=== PATIENT | female | born 1995 | race Caucasian/White ===

== ENCOUNTER 2020-01-16 13:51 | Outpatient (REF) | payer OTHER, SELFPAY | END 2020-01-16 13:52 | disposition home or self-care (01) | LOC: HO.LAB 13:51 | PROVIDERS: Visit Provider Internal Medicine | DX: Z20.828 Contact with and (suspected) exposure to other viral communicable diseases (principal) | CPT/HCPCS: 87635 ==

== ENCOUNTER → 2020-12-22 14:15 | Outpatient (BNVA) | payer OTHER, SELFPAY | PROVIDERS: Visit Provider Advanced Practice Midwife ==

== ENCOUNTER 2021-01-19 13:53 | Outpatient (REF) | payer OTHER, SELFPAY ==
[2021-01-20 11:11] LABS: BV Int Neg Control Negative (Negative); BV Int Pos Control Positive (Positive)
== END 2021-01-19 13:54 | disposition home or self-care (01) ==
LOC: HO.LAB 13:53
PROVIDERS: PCP Physician Assistant; Visit Provider Advanced Practice Midwife
DX: Z30.432 Encounter for removal of intrauterine contraceptive device (principal); N89.8 Other specified noninflammatory disorders of vagina
CPT/HCPCS: 58301; 87480; 87510; 87660

== ENCOUNTER 2021-09-30 10:11 | Outpatient (REF) | payer OTHER, SELFPAY ==
--- NOTE | ~2021-09-30 | XR_ITS ---
EXAMINATION: XR KNEE, LEFT CLINICAL INFORMATION: Left knee pain COMPARISON: None TECHNIQUE: Four views of the left knee. FINDINGS: There is mild suprapatellar joint effusion with no visible acute fracture or dislocation seen. There is evidence of previous left ACL repair. No fracture or lytic process seen. There are no loose bodies. XR/XR knee LT 4V IMPRESSION: Status post left ACL repair changes. Mild suprapatellar joint effusion. No visible acute fracture, dislocation or subluxation seen.
[2021-09-30 11:32] LABS: Hematocrit 38.1 % (37.0-47.0); Hemoglobin 12.4 g/dl (12.0-16.0); Mean Corpuscular HGB Conc 32.5 g/dl (31.0-35.0); Mean Platelet Volume 9.9 fL (9.4-12.3); Platelet Count 206 X10*3/uL (160-400); Red Blood Count 4.28 X10*6/uL (4.20-5.50); Red Cell Distribution Width 13.1 % (11.0-16.0); White Blood Count 4.5 X10*3/uL (4.8-10.8)
[2021-09-30 12:16] LABS: Alanine Aminotransferase 8 U/L (0-31); Albumin Level 4.2 g/dL (3.5-5.0); Alkaline Phosphatase 50 U/L (39-117); Anion Gap 10 (12-20); Aspartate Amino Transferase 12 U/L (5-31); Bilirubin Total 0.9 mg/dL (0.0-1.0); Blood Urea Nitrogen 13 mg/dL (9-16); Calcium 8.9 mg/dL (8.4-10.2); Carbon Dioxide 29 mmol/L (22-29); Chloride 108 mmol/L (96-108); Estimated Glomerular Filt Rate > 60; Glucose Fasting 54 mg/dL (60-99); Potassium 4.4 mmol/L (3.3-5.1); Sodium 143 mmol/L (135-145); TSH reflex Free T4 1.39 uIU/mL (0.32-4.0); Total Protein 6.4 g/dL (6.5-8.0)
== END 2021-09-30 10:12 | disposition home or self-care (01) ==
LOC: HO.HMGCX 10:11
PROVIDERS: Absent Provider Nurse Practitioner Family; PCP Physician Assistant; Visit Provider Physician Assistant
DX: Z13.29 Encounter for screening for other suspected endocrine disorder (principal); M25.562 Pain in left knee
CPT/HCPCS: 36415; 73564; 80053; 84443; 85027

== ENCOUNTER 2022-09-15 08:30 | Outpatient (REF) | payer OTHER, SELFPAY ==
[2022-09-15 10:55] LABS: Syphilis Screen Nonreactive (Nonreactive)
[2022-09-15 10:56] LABS: HBc Num1 0.03 S/CO (0.00-0.79); HIV AB/AG Nonreactive (Nonreactive); HIV Num 1 0.07 S/CO (0.00-0.99); Hepatitis B Core Antibody Nonreactive (Nonreactive); ~Hepatitis C Antibody Nonreactive (Nonreactive)
[2022-09-15 15:57] LABS: CT PCR NOT DETECTED (Not Detect.); NG PCR NOT DETECTED (Not Detect.)
[2022-09-16 12:54] LABS: BV Int Neg Control Negative (Negative); BV Int Pos Control Positive (Positive)
== END 2022-09-15 08:31 | disposition home or self-care (01) ==
LOC: HO.LAB 08:30
PROVIDERS: PCP Physician Assistant; Visit Provider Advanced Practice Midwife
DX: N76.0 Acute vaginitis (principal); B96.89 Other specified bacterial agents as the cause of diseases classified elsewhere; Z20.2 Contact with and (suspected) exposure to infections with a predominantly sexual mode of transmission
CPT/HCPCS: 0353U; 86704; 86780; 86803; 87389; 87480; 87510; 87660

== ENCOUNTER 2022-09-15 08:48 | Outpatient (REF) | payer OTHER, SELFPAY | END 2022-09-15 08:49 | disposition home or self-care (01) | LOC: HO.LNP 08:48 | PROVIDERS: Visit Provider Advanced Practice Midwife | DX: Z01.419 Encounter for gynecological examination (general) (routine) without abnormal findings (principal) | CPT/HCPCS: 88142 ==

== ENCOUNTER 2022-11-26 09:57 | Outpatient (REF) | payer OTHER, SELFPAY ==
[2022-11-26 15:46] LABS: CT PCR NOT DETECTED (Not Detect.); NG PCR NOT DETECTED (Not Detect.)
[2022-11-26 16:03] LABS: BV Int Neg Control Negative (Negative); BV Int Pos Control Positive (Positive)
== END 2022-11-26 09:58 | disposition home or self-care (01) ==
LOC: HO.LNP 09:57
PROVIDERS: PCP Physician Assistant; Visit Provider Obstetrics & Gynecology
DX: N76.0 Acute vaginitis (principal); Z20.2 Contact with and (suspected) exposure to infections with a predominantly sexual mode of transmission
CPT/HCPCS: 0353U; 87480; 87510; 87660; 99212

== ENCOUNTER 2022-11-26 09:57 | Outpatient (AMB) | payer OTHER, SELFPAY ==
--- NOTE | 2022-11-26 09:59 | MHC.OFFVIS ---
Intake Vital Signs 11/26/22 10:02 Height 5 ft 3 in Weight 160 lb 14.999 oz BMI 28.5 BP 98/62 Intake Visit Reasons: out break Resource Engineer Required: No Information Interpreted: non-clinical & clinical Karate Instructor: Karate Instructor Present (Rochelle Phan CLEMENTE) Accompanied by: Self / Same As Patient Allergies No Known Allergies [No Known Allergies*] Allergy (Verified 11/26/22 10:02) Is last menstrual period known: Yes Last menstrual period: 11/18/22 HPI HPI Comments History of Present Illness Details Presenting complaining of vulvovaginal irritation and itching associated with discharge with no odor. No vulvar lesions PFSH Medical History Borderline personality disorder Surgical History H/O knee surgery Family History Mother History of breast cancer Maternal Uncle Colon cancer Sister Thyroid cancer Social History Housing: Apartment Alcohol intake: current Alcohol intake frequency: a few times a week Patient Tobacco Use Status: Never used Tobacco e-Cigarette/Vaping Use: Currently Using service: No Current occupational status: employed Sexual orientation: Straight/Heterosexual Gender identity: Female Cognitive needs: No Hearing needs: No Vision needs: No Female Reproductive History Menstrual Date of last menstrual period: 11/18/22 Review of Systems Const All systems reviewed & are unremarkable except as noted in HPI and below Physical Exam Vital Signs: Last Vital Signs BP 98/62 11/26/22 10:02 BMI result Body Mass Index 28.5 General: Yes no CVA tenderness External Female Exam: normal external appearance and normal appearance of the urethra Speculum Exam - Vagina: normal appearance of the vagina, normal palpation, no lesions and no masses Speculum Exam - Cervix: normal appearance of the cervix, normal palpation, no lesions, no masses and nontender Bimanual exam- vagina & uterus: normal bimanual exam, normal palpation, uterine size normal, normal palpation, uterine shape normal, No Cervical tenderness present and non-tender Bimanual Exam- Adnexa, other: normal adnexae Back/Spine/Pelvis Back: no CVA tenderness Assessment & Plan Assessment & Plan (1) Vulvovaginitis: Code(s): N76.0 - Acute vaginitis Plan: GC/CT, Bacterial Vaginosis panel taken, Terazol 0.8% q.h.s. for 3 days was sent to the patient's pharmacy. The patient was instructed to call if symptoms don't improve in 48 hours. Orders: Orders CT NG by PCR Today Z20.2 - Contact with and (suspected) exposure to infections with a predominantly sexual mode of transmission Bacterial Vaginosis Panel Today Z20.2 - Contact with and (suspected) exposure to infections with a predominantly sexual mode of transmission Medications: New terconazole 0.8% 1 appful vaginal BEDTIME 20 grams 0RF 3 days Coding Level of Care Code Est Pt Level 3 (19504) Diagnoses Vulvovaginitis N76.0
[2022-11-26 10:02] VITALS: BP 98/62; BMI 28.5
== END 2022-11-26 10:13 | disposition home or self-care (01) ==
PROVIDERS: PCP Physician Assistant; Visit Provider Obstetrics & Gynecology
DX: N76.0 Acute vaginitis (principal)
CPT/HCPCS: 99213

== ENCOUNTER 2023-01-13 08:55 | Outpatient (AMB) | payer OTHER, SELFPAY ==
[2023-01-13 09:05] VITALS: BP 118/66; PULSE 55; O2SAT 98; BMI 29.0
--- NOTE | 2023-01-13 09:05 | A.OFFPC_ITS ---
Vital Signs 01/13/23 09:05 Height 5 ft 3 in Weight 164 lb BMI 29.0 BP 118/66 Blood Pressure Location Lt brachial Position Sitting Pulse 55 Pulse Source Pulse Oximeter Pulse Oximetry (%) 98 Oxygen Delivery Method Room Air Intake Visit Reasons: Annual Exam Allergies adhesive Adverse Reaction (Intermediate, Verified 01/13/23 09:23) dermatitis Medication List - Last Reconciled 01/13/23 by Rick Emerson PA-C sertraline 100 mg PO DAILY 90 days Tobacco use date assessed: 07/16/22 Dental Screening Dental Screen Date: 01/13/23 Did you have a dental visit in the last 12 months?: No Did you have a dental problem in the last 6 months where you did not have access to dental care?: No Was dental information given to patient?: Patient has dentist HPI Annual Exam HPI Details Patient is a 27-year-old female here today for a routine annual physical. Patient has a past medical history significant for major depressive disorder. Concern--> has developed a rash in the area she placed a patch for her control. Been managing with dry gauze. Also noted a hypoglycemia on last year's labs. She does report being somewhat symptomatic at times when she does not eat. MDD: Patient reports her depression is well controlled on current doses Zoloft. .. COST CONSULTANT: DOes follow A COST CONSULTANT - she would like a new control and is interested in an another IUD placement. 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 1. Little interest or pleasure in doing things: several days 2. Feeling down, depressed, or hopeless: several days 3. Trouble falling or staying asleep, or sleeping too much: several days 4. Feeling tired or having little energy: several days 5. Poor appetite or overeating: several days 6. Feeling bad about yourself - or that you are a failure or have let yourself or your family down: several days 7. Trouble concentrating on things, such as reading the newspaper or watching television: several days 8. Moving or speaking so slowly that other people could have noticed. Or the opposite - being so fidgety or restless that you have been moving around a lot more than usual: several days 9. Thoughts that you would be better off or of hurting yourself in some way: several days Total score: 9 Depression Screening Interpretation: Positive Depression Screening Follow-up: Existing condition and In treatment Depression Screening Done: Yes 35144 - PHQ-9 Billing: Yes Source: Developed by Drs. Jose Singh, Amaya Acosta, Reji Person and colleagues, with an educational bridget from [employer]. Thrive Questionnaire Date Thrive assessed: 07/16/22 AUDIT C Alcohol Use Questionnaire (AUDIT-C) 1. How often do you have a drink containing alcohol?: 2-4 times a month 2. How many drinks containing alcohol do you have on a typical day when you are drinking?: 1 or 2 Total Score: 2 Score Reviewed/Action Taken: Yes ELEONORA-7 AMB Questionnaire ELEONORA-7 Date ELEONORA - 7 assessed: 07/16/22 Source: Developed by Drs. Jose Singh, Amaya Acosta, Reji Person and colleagues, with an educational bridget from [employer]. Review of Systems Const Denies body aches, Denies chills, Denies excessive sweating, Denies fatigue, Denies fever(s) and Denies headache(s) Eyes Denies blurry vision ENT Denies dysphagia, Denies vertigo, Denies dizziness, Denies headache(s), Denies hearing loss and Denies tinnitus Card Denies chest pain, Denies chest pain with activity, Denies syncope, Denies i rregular heart rhythm and Denies dyspnea Resp Denies chest congestion, Denies cough, Denies hemoptysis, Denies dyspnea and Denies wheezing GI Denies abdominal pain, Denies melena, Denies hematochezia, Denies coffee ground emesis, Denies dysphagia, Denies diarrhea, Denies nausea and Denies vomiting Denies urinary frequency, Denies dysuria, Denies urinary hesitancy and Denies urinary urgency Musc Denies arthralgias, Denies limited range of motion, Denies muscle cramps and Denies muscle weakness Skin/Breast Denies rash and Denies skin ulcer Neuro Denies Abnormal speech present, Denies confusion, Denies vertigo, Denies dizziness, Denies syncope, Denies headache(s), Denies memory loss and Denies seizure-like activity Psych Denies anxiety, Denies confusion, Denies depression, Denies memory loss, Denies panic attacks and Denies paranoia Endo Denies excessive sweating, Denies fatigue, Denies flushing, Denies polydipsia and Denies polyuria Aller/Immun Denies wheezing Physical exam (Primary Care) Vital Signs: Last Vital Signs Pulse 55 01/13/23 09:05 BP 118/66 01/13/23 09:05 Pulse Ox 98 01/13/23 09:05 Oxygen Delivery Method Room Air 01/13/23 09:05 BMI result Body Mass Index 29.0 Tobacco/Smoking Status: Tobacco use Status Tobacco use date assessed 07/16/22 01/13/23 09:10 Patient Tobacco Use Status Never used Tobacco 01/13/23 09:10 e-Cigarette/Vaping Use Currently Using 01/13/23 09:10 PHQ-9: PHQ-9 Score PHQ-9: Total score 9 01/13/23 09:16 Depression Screening Interpretation: Positive Depression Screening Follow-up: Existing condition and In treatment Thrive Assessment: Date of Thrive Assessment Date Thrive assessed 07/16/22 01/13/23 09:10 Const General: cooperative, comfortable, no acute distress, alert and awake; No confusion Orientation/consciousness: oriented to person, oriented to place, patient oriented x3 and No confusion HENMT Head: Yes normocephalic Ears: external ears normal and TM's normal bilaterally Face and sinus: No sinus tenderness Mouth: Normal oral and palatal mucosa present and tongue normal Teeth and gingiva: dentition normal and gingiva normal Throat: Yes posterior oropharynx normal, Yes tonsils normal and Yes uvula midline Eyes Conjunctivae: conjunctivae normal Sclerae: sclerae normal Pupils: Equal, round and reactive pupils present EOM: EOMs intact bilaterally Direct Ophthalmoscopy: No no photophobia Neck Neck: Yes no lymphadenopathy, No tender and Yes no JVD Thyroid: Thyroid normal Carotids: no bruits Chest Chest palpation & inspection: no tenderness Resp Effort & Inspection: normal respiratory effort, no audible wheezes, not labored and no stridor Auscultation: no crackles, no rales, no rhonchi and no wheezes Cardio Jugular venous distension: no JVD Rate: regular rate, not bradycardic and not tachycardic Rhythm: regular rhythm Bruits: no carotid bruits Peripheral pulses: Peripheral pulses 2+ throughout GI Inspection: Yes normal to inspection, No abdominal wall ecchymosis and No visible herniation Palpation (GI): Soft to palpation, nontender, no guarding, not rigid and No hepatosplenomegaly present Auscultation: normoactive bowel sounds General: Yes no CVA tenderness Back/Spine/Pelvis Back: no CVA tenderness and No back tenderness Cervical Spine: cervical ROM normal Thoracic/Lumbar Spine: thoracic and lumbar spine normal to inspection, straight leg raise negative bilaterally, No thoraco-lumbar ROM limited and No lumbar spinal tenderness Skin Lesions: no lesions Rashes: no rashes Wounds: no wounds Neuro General: oriented to person, oriented to place, patient oriented x3, CN's II-XI intact bilaterally and No confusion Cranial nerves: Yes Equal, round and reactive pupils present and Yes Normal accommodation reflex present Cognition (Neuro): normal cognition Speech: No Abnormal speech present Gait exam (Neuro): Normal gait present Motor exam (neuro): 5/5 motor strength present throughout Extrem Right upper extremity: full ROM; no cyanosis Left upper extremity: full ROM; no cyanosis Right lower extremity: no edema Left lower extremity: no edema Psych Appearance: grossly normal Mental Status: mental status grossly normal Affect: normal affect Attitude: cooperative Thought process: Normal thought process present Office Procedures Flu Questionnaire Does the patient have a severe egg allergy?: No Does the patient have severe life threatening allergies?: No Does the patient have a fever or illness today?: No Has the patient ever had Guillain-[place] Syndrome?: No Has the patient ever had any past reaction to a flu shot?: No Immunizations flu vacc [id number] 6mos up(PF) 60 mcg(15 mcgx4)/0.5 mL IM syringe Performing Provider: Rick Emerson PA-C [facility] Administered by: CLEMENTE Degroot on 01/13/23 09:16 Dose Route Admin Location Dispensed Lot Number Expiration Date NDC Sales Appointment Coordinator 0.5 mL IM Right Deltoid 0.5 mL [id number] 01/13/23 85694-095-83 [employer] VIS Given Date VIS Provided VIS Publication Date 01/13/23 Single Vaccine 20 Eligibility Eligibility Date Funding Source Not [place] Eligible 01/13/23 Private Assessment and Plan Assessment & Plan (1) Annual physical exam: Code(s): Z00.00 - Encounter for general adult medical examination without abnormal findi ngs (2) MDD (major depressive disorder), recurrent episode, moderate: Code(s): F33.1 - Major depressive disorder, recurrent, moderate Plan: Patient's PHQ-9 score positive for mild to moderate depression which has been an existing condition for her. Patient reports her depression is well controlled with current dose of sertraline at 100 mg. She is not talking to mental therapist or psychiatrist at this time. Will continue her current dose of Zoloft. Otherwise denies any SI or HI. (3) Screening for diabetes mellitus (DM): Code(s): Z13.1 - Encounter for screening for diabetes mellitus (4) Dermatitis: Code(s): L30.9 - Dermatitis, unspecified Plan: Has acute contact dermatitis to control patch. Will supply patient with triamcinolone cream for the inflammation and skin irritation. (5) Hypoglycemia: Code(s): E16.2 - Hypoglycemia, unspecified Plan: Noted hypoglycemia on fasting labs. She does report some symptomatic hypoglycemia if he does not eat. Advised to eat regular meals and have snacks in between (6) Family history of thyroid cancer: Code(s): Z80.8 - Family history of malignant neoplasm of other organs or systems Plan: Reports her sister has thyroid cancer. Will check her TSH. Orders: Orders Comprehensive [place]. Panel Fast Today Z13.1 - Encounter for screening for diabetes mellitus TSH reflex Free T4 Today Z80.8 - Family history of malignant neoplasm of other organs or systems Influenza [id number] Immunization Today Z23 - Encounter for immunization Medications: New triamcinolone acetonide 0.5% 1 appl topical DAILY 15 grams 0RF 15 days L30.9 - Dermatitis, unspecified Coding Level of Care Code Est Pt Prev Care 18-39y(77599) Diagnoses Annual physical exam Z00.00 MDD (major depressive disorder), recurrent episode, moderate F33.1 Screening for diabetes mellitus (DM) Z13.1 Dermatitis L30.9 Hypoglycemia E16.2 Family history of thyroid cancer Z80.8
== END 2023-01-13 09:38 | disposition home or self-care (01) ==
PROVIDERS: Visit Provider Physician Assistant
DX: Z00.00 Encounter for general adult medical examination without abnormal findings (principal); F33.1 Major depressive disorder, recurrent, moderate; Z13.1 Encounter for screening for diabetes mellitus; L30.9 Dermatitis, unspecified; E16.2 Hypoglycemia, unspecified; Z80.8 Family history of malignant neoplasm of other organs or systems; Z23 Encounter for immunization
CPT/HCPCS: 90471; 90686; 99395

== ENCOUNTER 2023-03-01 10:00 | Outpatient (REF) | payer OTHER, SELFPAY ==
[2023-03-02 05:38] LABS: CT PCR NOT DETECTED (Not Detect.); NG PCR NOT DETECTED (Not Detect.)
[2023-03-02 12:22] LABS: BV Int Neg Control Negative (Negative); BV Int Pos Control Positive (Positive)
== END 2023-03-01 10:01 | disposition home or self-care (01) ==
LOC: HO.LAB 10:00
PROVIDERS: PCP Physician Assistant; Visit Provider Advanced Practice Midwife
DX: Z01.419 Encounter for gynecological examination (general) (routine) without abnormal findings (principal); Z20.2 Contact with and (suspected) exposure to infections with a predominantly sexual mode of transmission; Z11.3 Encounter for screening for infections with a predominantly sexual mode of transmission; Z11.59 Encounter for screening for other viral diseases
CPT/HCPCS: 0353U; 81025; 87480; 87510; 87660; 99212

== ENCOUNTER 2023-03-01 10:00 | Outpatient (AMB) | payer OTHER, SELFPAY ==
--- NOTE | 2023-03-01 10:26 | A.OFFVIS_ITS ---
Intake Vital Signs 03/01/23 10:29 Height 5 ft 3 in Weight 164 lb BMI 29.0 BP 122/70 Intake Visit Reasons: STD Testing Scaffold Worker Required: No Information Interpreted: clinical only Senior Dot Net Developer: Senior Dot Net Developer Present Allergies adhesive Adverse Reaction (Intermediate, Verified 03/01/23 10:26) dermatitis Is last menstrual period known: Yes (02/12/23) Do you need a note to return to daycare/school/sports/work: No HPI STD Testing HPI Details Patient is here to get STD tested after being with someone new. Her last menstrual period was February 12 she wanted a test just to be sure it is negative. She is currently not using anything for control but she is not sexually active at the moment either she had used a control patch but had a terrible allergic reaction after 2 days to the patch on her skin on her upper arm. She still has a patch at home in her medicine cabinet and I recommend she take a photo of the ingredients so that she is sure to avoid any of the ingredients in Band-Aids in the future. She never had a reaction to Band-Aids or control patches in the past before so it may be specific to the particular generic brand that was used. She has used the ParaGard IUD before for about 5 years after of her child she had no problems with it she thought that it was responsible for recurrences of BV and low and behold it turns out that it is when she is sexually active that the BV recurs. She tends to use condoms also but not always which is why she wants to get checked for STDs. She also would like a ParaGard for future use and protection from . She said her periods did not get worse with the ParaGard the last time . She would like blood work for STIs as well. 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 Vagina pink moist cervix pink moist healthy appearing extremely posterior. Normal healthy appearing mucus consistent with midcycle or just before, uterus is small mobile firm anteverted nontender good tone with Kegel. External Female Exam: normal external appearance Speculum Exam - Vagina: normal appearance of the vagina and normal vaginal discharge Speculum Exam - Cervix: normal appearance of the cervix Bimanual exam- vagina & uterus: normal bimanual exam, uterine size normal, consistency normal, uterine mobility normal, uterine shape normal and non-tender Bimanual Exam- Adnexa, other: normal adnexae, no masses and No adnexal tenderness Results AMB Test Urine AMB Test Urine Negative Last Edit by Asad Weber CMA on 03/01/23 10:41 Assessment & Plan Assessment & Plan (1) Encounter for screening examination for sexually transmitted disease: Code(s): Z11.3 - Encounter for screening for infections with a predominantly sexual mode of transmission Plan Testing done for gonorrhea chlamydia trichomoniasis as well as Gardnerella and Elena discussion about BV done in ger terms patient has observed that it is sexual activity that is the most common denominator in terms of recurrence of BV she is able to manage it with condoms for the most part and if she ever does feel she has symptom she uses boric acid for 3 days and is set. She also would like blood work for STIs and I also offered her a full panel for testing for hepatitis-B and C so that she can see if she is still protected by antibodies for hepatitis-B. She signed a form for the ParaGard IUD and I recommend she call if she does not hear anything within the month and that we would want to inserted on day 1 or 2 of her next period and once it is in she would call when she has her. Starting and we would try to get her in that day. She will use condoms if any activity before then. Orders: Orders Hepatitis B Surface Antigen Today Z11.3 - Encounter for screening for infections with a predominantly sexual mode of transmission HIV Ab/Ag Today Z11.3 - Encounter for screening for infections with a predominantly sexual mode of transmission Hepatitis B,C Profile Today Z11.3 - Encounter for screening for infections with a predominantly sexual mode of transmission AMB HCG Urine Test Today Z00.00 - Encounter for general adult medical examination without abnormal findings Hepatitis C Antibody Today Z11.3 - Encounter for screening for infections with a predominantly sexual mode of transmission Syphilis Screen Today Z11.3 - Encounter for screening for infections with a predominantly sexual mode of transmission Coding Level of Care Code Est Pt Level 3 (91654) Diagnoses Encounter for screening examination for sexually transmitted disease Z11.3
[2023-03-01 10:29] VITALS: BP 122/70; BMI 29.0
== END 2023-03-01 11:04 | disposition home or self-care (01) ==
LOC: HO.HWSM 10:00
PROVIDERS: PCP Physician Assistant; Visit Provider Advanced Practice Midwife
DX: Z11.3 Encounter for screening for infections with a predominantly sexual mode of transmission (principal); Z00.00 Encounter for general adult medical examination without abnormal findings
CPT/HCPCS: 99213

== ENCOUNTER 2023-03-08 10:31 | Outpatient (REF) | payer OTHER, SELFPAY ==
[2023-03-09 04:33] LABS: Syphilis Screen Nonreactive (Nonreactive)
[2023-03-09 05:08] LABS: HBS Num1 11.76 mIU/mL (0-7.99); HBc Num1 0.03 S/CO (0.00-0.79); HBsAGNum1 0.38 S/CO (0.00-0.99); HIV AB/AG Nonreactive (Nonreactive); HIV Num 1 0.05 S/CO (0.00-0.99); Hepatitis B Core Antibody Nonreactive (Nonreactive); Hepatitis B Surface Antigen Negative (Negative); ~Hepatitis C Antibody Nonreactive (Nonreactive)
[2023-03-09 06:05] LABS: HBS Num2 12.06 mIU/mL (0-7.99); ~Hepatitis B Surface Antibody GRAYZONE (Nonreactive)
== END 2023-03-08 10:32 | disposition home or self-care (01) ==
LOC: HO.LAB 10:31
PROVIDERS: PCP Physician Assistant; Visit Provider Advanced Practice Midwife
DX: Z11.3 Encounter for screening for infections with a predominantly sexual mode of transmission (principal)
CPT/HCPCS: 36415; 86704; 86706; 86780; 86803; 87340; 87389

== ENCOUNTER 2023-03-16 10:02 | Outpatient (AMB) | payer OTHER, SELFPAY ==
--- NOTE | 2023-03-16 10:19 | AM.OFFVISNUR ---
Intake Intake Visit Reasons: Hep vaccine Allergies adhesive Adverse Reaction (Intermediate, Verified 03/01/23 10:26) dermatitis Immunizations Engerix-B (PF) 20 mcg/mL intramuscular suspension Performing Provider: Rick Emerson PA-C [facility] Administered by: Lilli Rushing RN on 03/16/23 10:19 Dose Route Admin Location Dispensed Lot Number Expiration Date [facility] Hiv Prevention Specialist 1 mL IM Left Deltoid 1 mL [id number] 08/21/23 07544-972-60 [employer] VIS Given Date VIS Provided VIS Publication Date 03/16/23 Single Vaccine 22 Eligibility Eligibility Date Funding Source Not [facility] Eligible 03/16/23 Private Coding Assessment & Plan Assessment & Plan Orders: Orders Hepatitis B Adult Immunization Today Z23 - Encounter for immunization
== END 2023-03-16 10:20 | disposition home or self-care (01) ==
PROVIDERS: PCP Physician Assistant; Visit Provider Physician Assistant
DX: Z23 Encounter for immunization (principal)
CPT/HCPCS: 90471; 90746

== ENCOUNTER 2023-04-18 08:38 | Outpatient (AMB) | payer OTHER, SELFPAY ==
--- NOTE | 2023-04-18 08:46 | AM.OFFVISNUR ---
Intake Intake Visit Reasons: hep B second dose Intake Note: Next vaccine should be 6 month from her first shot. This vaccine today was her second dose. Allergies adhesive Adverse Reaction (Intermediate, Verified 03/01/23 10:26) dermatitis Immunizations Engerix-B (PF) 20 mcg/mL intramuscular syringe Performing Provider: Rick Emerson PA-C [facility] Administered by: Flaca Holbrook CMA on 04/18/23 08:49 Dose Route Admin Location Dispensed Lot Number Expiration Date [facility] Plant Sprayer 1 mL IM Left Deltoid 1 mL [id number] 08/06/24 07992-125-95 [employer] VIS Given Date VIS Provided VIS Publication Date 04/18/23 Single Vaccine 22 Eligibility Eligibility Date Funding Source Not [facility] Eligible 04/18/23 Private Coding Assessment & Plan Assessment & Plan Orders: Orders Hepatitis B Adult Immunization Today Z23 - Encounter for immunization
== END 2023-04-18 09:09 | disposition home or self-care (01) ==
PROVIDERS: PCP Physician Assistant; Visit Provider Physician Assistant
DX: Z23 Encounter for immunization (principal)
CPT/HCPCS: 90471; 90746

== ENCOUNTER 2023-07-19 07:59 | Emergency (ER) | payer OTHER, SELFPAY ==
--- NOTE | ~2023-07-19 | XR_ITS ---
EXAMINATION: XR KNEE, RIGHT CLINICAL INFORMATION: Pain COMPARISON: None available. TECHNIQUE: Four views of the right knee. FINDINGS: Postsurgical changes noted. No fracture or destructive lesion or alignment abnormality or joint effusion. XR/XR knee LT 2V IMPRESSION: No acute findings.
[2023-07-19 08:35] VITALS: BP 104/54; PULSE 64; RESP 18; TEMP 36.6; O2SAT 98; BMI 28.3
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
[2023-07-19] MEDS: Acetaminophen 325 MG TABLET 975 MG PO (10:55)
[2023-07-19] MEDS: Ketorolac Tromethamine 30 MG/ML VIAL IM (10:55)
[2023-07-19 11:04] VITALS: BP 104/54; PULSE 64; RESP 18; TEMP 36.6; O2SAT 98
== END 2023-07-19 11:05 | disposition home or self-care (01) ==
PROVIDERS: Emergency Provider Emergency Medicine; PCP Physician Assistant
DX: M25.562 Pain in left knee (principal)
CPT/HCPCS: 73560; 96372; 99284; J1885

== ENCOUNTER 2023-08-01 07:51 | Outpatient (REF) | payer OTHER, SELFPAY | END 2023-08-01 07:52 | disposition home or self-care (01) | LOC: HO.HOSX 07:51 | PROVIDERS: Visit Provider Orthopaedic Surgery | DX: S89.92XA Unspecified injury of left lower leg, initial encounter (principal) | CPT/HCPCS: 99202 ==

== ENCOUNTER 2023-08-01 09:16 | Outpatient (AMB) | payer OTHER, SELFPAY ==
[2023-08-01 09:24] VITALS: BMI 28.3
--- NOTE | 2023-08-01 09:24 | A.OFFVIS_ITS ---
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 The patient states that she underwent two anterior cruciate ligament replacement surgeries after suffering soccer injuries while in high school. The patient states that she re- injured her left knee approximately 1 year ago. She twisted her knee and had acute onset of pain. Since that time her symptoms have gotten progressively worse. She has done physical therapy exercises which aggravated her pain. She has also tried Tylenol and anti-inflammatory medicines which gave her minimal relief. The patient states that her left knee will give out several times per day. Allergies adhesive Adverse Reaction (Intermediate, Verified 08/01/23 09:38) dermatitis Medication List - Last Reconciled 08/01/23 by Evan Morales MD acetaminophen (Tylenol) 325 mg PO Q4H PRN sertraline 100 mg PO DAILY 90 days PFSH Medical History Borderline personality disorder Surgical History H/O knee surgery Family History Mother History of breast cancer Maternal Uncle Colon cancer Sister Thyroid cancer Social History (Updated 08/01/23 @ 09:39 by Emilee Horner CMA) Housing: Apartment Alcohol intake: former Patient Tobacco Use Status: Never used Tobacco e-Cigarette/Vaping Use: Currently Using service: No 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 Sexual orientation: Straight/Heterosexual Gender identity: Female Cognitive needs: No Hearing needs: No Vision needs: No Female Reproductive History Menstrual Age of Menarche: 16 Physical Exam Vital Signs: BMI result Body Mass Index 28.3 Const Other: Well-nourished well-developed very friendly female awake alert and oriented x3 in no acute distress Extrem Other: Bilateral lower extremity examination shows good capillary refill, no skin lesions noted, normal sensation light touch Left knee examination shows that the surgical incisions are well healed, no erythema, minimal crepitus with range of motion, positive Sahra's test, tenderness along her medial joint line, positive Yocasta's test Results Reviewed Results Reviewed: X-rays of the patient's left knee show mild joint space narrowing, bony changes consistent with previous anterior cruciate ligament reconstructive surgery Assessment & Plan Assessment & Plan (1) Injury of left anterior cruciate ligament: Code(s): S89.92XA - Unspecified injury of left lower leg, initial encounter Category: Medical Plan Ms. Tim presents with recurrent left knee pain and mechanical symptoms most likely due to a recurrent anterior cruciate ligament tear. Thus, I will send the patient for an MRI of her left knee for further evaluation. I will contact her by phone once the MRI results are available. Feel free to call me at any time should questions regarding her orthopedic management arise. Thank you very much for asking me to see this very friendly patient. I spent 21 minutes in reviewing the patient's records and imaging studies, seeing the patient and documenting in the medical record. Orders: Orders XR knee LT 3V Today M25.562 - Pain in left knee MR knee LT wo con Today S89.92XA - Unspecified injury of left lower leg, initial encounter Coding Level of Care Code New Pt Level 2 (19734) Diagnoses Injury of left anterior cruciate ligament S89.92XA
== END 2023-08-01 09:49 | disposition home or self-care (01) ==
PROVIDERS: PCP Physician Assistant; Visit Provider Orthopaedic Surgery
DX: S89.92XA Unspecified injury of left lower leg, initial encounter (principal)
CPT/HCPCS: 99203

== ENCOUNTER 2023-08-11 13:17 | Outpatient (REF) | payer OTHER, SELFPAY ==
[2023-08-12 07:18] LABS: CT PCR NOT DETECTED (Not Detect.); NG PCR NOT DETECTED (Not Detect.)
[2023-08-12 11:13] LABS: Bacterial Vaginosis PCR POSITIVE (Negative); Candida Group PCR NOT DETECTED (Not Detect); Candida glab krusei PCR NOT DETECTED (Not Detect); Trichomonas vaginalis PCR NOT DETECTED (Not Detect)
== END 2023-08-11 13:18 | disposition home or self-care (01) ==
LOC: HO.LAB 13:17
PROVIDERS: PCP Physician Assistant; Visit Provider Advanced Practice Midwife
DX: Z01.419 Encounter for gynecological examination (general) (routine) without abnormal findings (principal); Z30.430 Encounter for insertion of intrauterine contraceptive device; Z20.2 Contact with and (suspected) exposure to infections with a predominantly sexual mode of transmission
CPT/HCPCS: 0352U; 0353U; 58300; 81025; J7300

== ENCOUNTER 2023-08-11 13:17 | Outpatient (AMB) | payer OTHER, SELFPAY ==
[2023-08-11 13:20] VITALS: BP 112/60; BMI 29.0
--- NOTE | 2023-08-11 13:20 | A.OFFVIS_ITS ---
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 She does not want anything with hormones in it she does g et a recurrent BV but she manages it mostly with the occasional boric acid capsule and that takes care of things and for her symptoms of BV are often before her. More of a fishy odor and I kind of a creamy discharge she does acknowledge that those are her symptoms. She is open to STI repeat testing today as her last exam was in February. Her periods started yesterday her period Tends to be sort of heavy and clotty. 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 Sexual orientation: Straight/Heterosexual Gender identity: Female Cognitive needs: No Hearing needs: No Vision needs: No Female Reproductive History Menstrual Age of Menarche: 16 Duration of menses: <3 days Date of last menstrual period: 08/10/23 control method: none Total pregnancies: 1 Full term: 1 Date of last pap smear: 09/16/22 (negative) Physical Exam Vital Signs: Last Vital Signs BP 112/60 08/11/23 13:20 BMI result Body Mass Index 29.0 Other: Patient has moderate to heavy menses her cervix is multiparous long close thick mobile posterior pointing uterus is markedly anteverted mobile nontender on the larger side of normal, mobile nontender adnexa nontender good muscle tone. External Female Exam: normal external appearance Speculum Exam - Vagina: normal appearance of the vagina and normal vaginal discharge Speculum Exam - Cervix: normal appearance of the cervix Bimanual exam- vagina & uterus: normal bimanual exam, uterine size normal, consistency normal, uterine mobility normal, uterine shape normal and non-tender Bimanual Exam- Adnexa, other: normal adnexae, no masses and No adnexal tenderness Office Procedures IUD Insert/Removal Details Details: ---Patient is here for her IUD insertion. Bimanual exam was done. Her uterus is firm, nontender, and appropriate sized, and is anteverted with the cervix pointing directly posterior Testing obtained for gonorrhea chlamydia trichomoniasis Gardnerella and Elena as last testing was 6 months ago. . The cervix was swabbed with Betadine. Tenaculum was placed on the cervix slowly to minimize cramping. The uterus was sounded slowly and gently. There was some resistance at the internal os so a dilator was used and gently probed and was able to navigate the axis of the os smoothly. Her uterus was sounded and it showed a measurement of 9 cm. The IUD was removed from its package, after checking identifying information and lot dates and expiration dates and and gently inserted into the os, as per the IUD insertion procedure. Insertion of the IUD went very smoothly. The strings were then trimmed to 3 centimetres. The tenaculum was removed and gentle pressure applied with a swab, until any bleeding subsided from the tenaculum sites. The speculum was gently removed. The patient sat up. I Reviewed what to expect, and what indications would necessitate a call. Because of the need for the dilator and just to ensure correct placement and because of the borderline large measurement I am ordering a pelvic ultrasound to ascertain that the IUD is in the correct spot. I am ordering it stat so will be done either today or tomorrow. Pt to call for fever, untoward pain or cramping. I reviewed any appropriate backup method. Pt to return for recheck as scheduled. 27296-OOS Insertion Procedure code (CPT) selection complete Office Meds [employer] T 380A 380 square mm intrauterine device Performing Provider: Karol Meléndez CNM Performing Location[facility] [place] [facility] Administered by: Asad Weber CMA on 08/11/23 14:02 Dose Route Admin Location Dispensed Lot Number Expiration Date [facility] Engineer First Assistant 1 device intrauterine 1 ea [id number] 10/17/28 Results AMB Test Urine AMB Test Urine Negative Last Edit by Asad Weber CMA on 08/11/23 13:31 Results Reviewed Results Reviewed: Laboratory Last Values Tst Clinic Negative 08/11/23 13:30 Specimen Inquiry Name: BryanSteve pritchardjose Ortiz Age/Sex: 27/F : 1995 Unit#: [id number] Attend Dr: Karol Meléndez CNM Re03/01/23 Status: DEP [facility]: SPEC : [id number] YUDI: 03/01/23 STATUS: COMP REQ : [id number] RECD: 03/01/[address]: Karol Meléndez CNM COMP: 03/02/23 ENTERED: 03/01/[address]: Rick Emerson PA-C ORDERED: BV Panel Test Result Flag Reference Trichomonas DNA Negative Negative Gardnerella DNA Positive A Negative Elena DNA Negative Negative robin: Maeve Tim Age/Sex: 26/F Attending: Shanna Figueroa CNM : 1995 Submitted by: Shanna Figueroa CNM Copies to: MR #: [id number] Status: DEP REF Collected: 09/15/22 Location: [facility] Received: 09/16/22 Interpretation Satisfactory for evaluation. Negative for intraepithelial lesion or malignancy. Clinical Information LMP: 08/25/22 Previous PAP test: 2017, WNL Material Received ThinPrep-Cervical Electronically Signed By: Gaby Solano 10/02/22 1525 The Pap Test is a screening procedure with the inherent possibility of both false negative and false positive results. Results should be interpreted in the context of historic and current clinical findings. Reliability of the Pap Test is enhanced by performing the test on a regular repetitive basis. Patient: Maeve Tim Age/Sex: 26/F MR#: [id number] Page 1 of 1 Assessment & Plan Assessment & Plan (1) Encounter for screening examination for sexually transmitted disease: Code(s): Z11.3 - Encounter for screening for infections with a predominantly sexual mode of transmission Category: Medical (2) Encounter for IUD insertion: Code(s): Z30.430 - Encounter for insertion of intrauterine contraceptive device Category: Medical Plan Because it the need for the dilator and the borderline upper limit measurement the uterus 9 cm, I am ordering an ultrasound to be done on an urgent basis in basis so that I can ascertain that the IUD is in the correct spot. I reviewed that if it were not she would need to return in need to remove it. Once the internal os was passed there was no resistance at all. I asked the patient not to have sex until correct placement is verified and we will have a visit to see how she is doing in 6 weeks. Reviewed the side effects associated with the ParaGard she noticed no change with her periods when she had it before and she likes the new hormone aspect of it. Orders: Orders AMB HCG Urine Test Today Z32.02 - Encounter for test, result negative AMB IUD Insertion/Removal - Patient Supply Today Z30.430 - Encounter for insertion of intrauterine contraceptive device US pelvic and transvaginal Today Z11.3 - Encounter for screening for infections with a predominantly sexual mode of transmission, Z30.430 - Encounter for insertion of intrauterine contraceptive device Coding Level of Care Code Est Pt Level 3 (24851) Diagnoses Encounter for screening examination for sexually transmitted disease Z11.3 Encounter for IUD insertion Z30.430 CPT Codes Details - CPT: 47561-WOG Insertion ([id number])
== END 2023-08-11 14:07 | disposition home or self-care (01) ==
LOC: HO.HWSM 13:17
PROVIDERS: PCP Physician Assistant; Visit Provider Advanced Practice Midwife
DX: Z30.430 Encounter for insertion of intrauterine contraceptive device (principal); Z32.02 Encounter for pregnancy test, result negative
CPT/HCPCS: 58300

== ENCOUNTER 2023-08-11 15:12 | Outpatient (REF) | payer OTHER, SELFPAY ==
--- NOTE | ~2023-08-11 | US_ITS ---
EXAMINATION: US PELVIS CLINICAL INFORMATION: Evaluate IUD COMPARISON: None available. TECHNIQUE: Transabdominal transvaginal study. The uterus is measuring 9 x 4 x 5 cm. Anteverted. Anteflexed. Exam does demonstrate an IUD device associated with the canal. The right ovary is 2.4 x 2.8 x 2.5 cm. Volume 9 mL Left ovary is 2.8 x 1.5 x 1.7 cm. Volume 4 mL. US/US pelvic and transvaginal IMPRESSION: Findings consistent with IUD within the uterus.
== END 2023-08-11 15:13 | disposition home or self-care (01) ==
LOC: HO.US 15:12
PROVIDERS: PCP Physician Assistant; Visit Provider Advanced Practice Midwife
DX: Z30.430 Encounter for insertion of intrauterine contraceptive device (principal)
CPT/HCPCS: 76830; 76856

== ENCOUNTER 2023-09-01 13:33 | Outpatient (AMB) | payer OTHER, SELFPAY ==
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
== END 2023-09-01 16:15 | disposition home or self-care (01) ==
PROVIDERS: PCP Physician Assistant; Visit Provider Orthopaedic Surgery
DX: S83.212A Bucket-handle tear of medial meniscus, current injury, left knee, initial encounter (principal); S83.512A Sprain of anterior cruciate ligament of left knee, initial encounter; S89.92XA Unspecified injury of left lower leg, initial encounter
CPT/HCPCS: 99214

== ENCOUNTER → 2023-09-01 13:33 | Outpatient (BNVA) | payer OTHER, SELFPAY | PROVIDERS: PCP Physician Assistant; Visit Provider Orthopaedic Surgery | DX: S83.242A Other tear of medial meniscus, current injury, left knee, initial encounter (principal); S89.92XA Unspecified injury of left lower leg, initial encounter; X50.1XXA Overexertion from prolonged static or awkward postures, initial encounter; Y93.55 Activity, bike riding; Y92.410 Unspecified street and highway as the place of occurrence of the external cause | CPT/HCPCS: 99212 ==

== ENCOUNTER 2023-09-09 08:58 | Outpatient (AMB) | payer OTHER, SELFPAY ==
--- NOTE | 2023-09-09 09:29 | AM.OFFVISNUR ---
Intake Intake Visit Reasons: 3rd hep vaccine Allergies adhesive Adverse Reaction (Intermediate, Verified 08/11/23 13:22) dermatitis Immunizations Recombivax HB (PF) 10 mcg/mL intramuscular suspension Performing Provider: Rick Emerson PA-C [facility] Administered by: Jacquie Millard RN on 09/09/23 09:30 Dose Route Admin Location Dispensed Lot Number Expiration Date NDC Acquisition Lead 1 mL IM Left Deltoid 1 mL [id number] 02/25/24 92801-878-83 Card Capture Services VIS Given Date VIS Provided VIS Publication Date 09/09/23 Single Vaccine 22 Eligibility Eligibility Date Funding Source Not [facility] Eligible 09/09/23 Private Coding Assessment & Plan Assessment & Plan Orders: Orders Hepatitis B Adult Immunization Today Z23 - Encounter for immunization Medications: New Recombivax HB (PF) (hepatitis B virus vacc.rec(PF)) 1.0 mL IM ONCE 1 mL 0RF NS Z23 - Encounter for immunization
== END 2023-09-09 09:35 | disposition home or self-care (01) ==
PROVIDERS: PCP Physician Assistant; Visit Provider Physician Assistant
DX: Z23 Encounter for immunization (principal)
CPT/HCPCS: 90471; 90746

== ENCOUNTER 2023-09-19 12:53 | Outpatient (AMB) | payer OTHER, SELFPAY ==
[2023-09-19 13:09] VITALS: BP 100/62; BMI 28.2
--- NOTE | 2023-09-19 13:09 | A.OFFVIS_ITS ---
Vital Signs 09/19/23 13:09 Height 5 ft 3 in Weight 159 lb BMI 28.2 BP 100/62 Intake Visit Reasons: 6 week Follow up Sponge Maker Required: No Sponge Maker Services: Sponge Maker Present Information Interpreted: clinical only Braille Duplicating Machine Operator: Braille Duplicating Machine Operator Present Allergies adhesive Adverse Reaction (Intermediate, Verified 09/19/23 13:10) dermatitis Medication List - Last Reconciled 09/19/23 by Karol Meléndez CNM acetaminophen (Tylenol) 325 mg PO Q4H PRN sertraline 100 mg PO DAILY 90 days Is last menstrual period known: Yes Last menstrual period: 08/13/23 Patient : No Do you need a note to return to daycare/school/sports/work: No HPI HPI 6 week Follow up: Details: Patient is here for 6 week post ParaGard insertion checkup ParaGard was placed. She is not having any problems with it at all she did get her menses since the last visit she has lost track a little bit because her phone tracker has messed up. She also wanted to have her breasts examined because she says her mother had breast cancer she thinks it might of been her 40s. She does not have a relationship with her mother who is schizophrenic so she does not have a way of clarifying this information but she will ask her stepmother or (?) who May know more about the age of onset. 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 No patient does have silicone overlying both clavicles in nipple piercings, multiple tatto os Other: Normal healthy appearing mucus consistent with follicular phase. Cervix nulliparous pink smooth with ParaGard IUDstrings, downward pointing External Female Exam: normal external appearance and normal appearance of the urethra Speculum Exam - Vagina: normal appearance of the vagina and normal vaginal discharge Speculum Exam - Cervix: normal appearance of the cervix and Cervical os closed Results Reviewed Results Reviewed: Name: Maeve Tim Age/Sex: 26/F Attending: Shanna Figueroa CNM : 1995 Submitted by: Shanna Figueroa CNM Copies to: MR #: [id number] Status: DEP REF Collected: 09/15/22 Location: [facility] Received: 09/16/22 Interpretation Satisfactory for evaluation. Negative for intraepithelial lesion or malignancy. Clinical Information LMP: 08/25/22 Previous PAP test: 2018, WNL Material Received ThinPrep-Cervical Electronically Signed By: Gaby Solano 10/02/22 1525 The Pap Test is a screening procedure with the inherent possibility of both false negative and false positive results. Results should be interpreted in the context of historic and current clinical findings. Reliability of the Pap Test is enhanced by performing the test on a regular repetitive basis. Patient: Maeve Tim Age/Sex: 26/F MR#: [id number] Page 1 of 1 Assessment & Plan Assessment & Plan (1) Encounter for routine checking of intrauterine contraceptive device (IUD): Comment: ParaGard IUD replaced 08/11/2023, Code(s): Z30.431 - Encounter for routine checking of intrauterine contraceptive device Category: Medical (2) Family history of breast cancer in first degree relative: Comment: Patient states her mother had breast cancer she does not know age of onset or details, offered genetic counseling referral, she will investigate more information 1st. Code(s): Z80.3 - Family history of malignant neoplasm of breast Category: Medical Plan Patient is very familiar with the ParaGard IUD as this is her 2nd. She is doing well with a normal menses she gets normal cyclic changes and breast changes as well. She is going to investigate with other relatives that may no when her mother 1st was diagnosed with breast cancer in this may inform whether not she decides to get genetic screening whether not she would be a candidate for early mammography. Offered consultation with breast surgeon for discussion of this what she is going to investigate her family history little bit more 1st and I told her referral could be made I primary care as well. Discussed normal breast cancer screening and mammography starting at age 40 unless earlier family onset. Coding Level of Care Code Est Pt Level 3 (92890) Diagnoses Encounter for routine checking of intrauterine contraceptive device (IUD) Z30.431 Family history of breast cancer in first degree relative Z80.3
== END 2023-09-19 13:51 | disposition home or self-care (01) ==
LOC: HO.HWSM 12:53
PROVIDERS: PCP Physician Assistant; Visit Provider Advanced Practice Midwife
DX: Z30.431 Encounter for routine checking of intrauterine contraceptive device (principal); Z80.3 Family history of malignant neoplasm of breast
CPT/HCPCS: 99213

== ENCOUNTER → 2023-09-19 12:53 | Outpatient (BNVA) | payer OTHER, SELFPAY | PROVIDERS: PCP Physician Assistant; Visit Provider Advanced Practice Midwife | DX: Z30.431 Encounter for routine checking of intrauterine contraceptive device (principal); Z80.3 Family history of malignant neoplasm of breast | CPT/HCPCS: 99212 ==

== ENCOUNTER 2023-09-20 08:16 | Day surgery (SDC) | payer OTHER, SELFPAY ==
[2023-09-20] VITALS (8 sets, daily range): BP systolic 102–127; BP diastolic 59–75; PULSE 68–100; RESP 12–18; TEMP 36.1–36.8; O2SAT 96–100; BMI 29.1
[2023-09-20 08:45] LABS: UPreg QC Valid YES
[2023-09-20 08:46] LABS: Urine Pregnancy NEGATIVE (NEGATIVE)
[2023-09-20] MEDS: Lactated Ringers 1,000 ML 80 ML IVCONT (08:51)
--- NOTE | 2023-09-20 09:02 | PC.NURSE ---
Dr. Marquez aware of facial implanted piercing on right cheek, welded on necklace and left ankle. waiver in chart. educated patient.
--- NOTE | 2023-09-20 09:13 | HO.ANESPROP2 ---
HPI - Anesthesia Eval Consult details Narrative: left ACL PMFSH Active Problems Active Problems: All Active Problems Family history of breast cancer in first degree relative (Acute) Encounter for routine checking of intrauterine contraceptive device (IUD) (Acute) Tear of medial meniscus of left knee (Acute) Encounter for IUD insertion (Acute) Injury of left anterior cruciate ligament (Acute) Left knee pain (Acute) Encounter for screening examination for sexually transmitted disease (Acute) Family history of thyroid cancer (Acute) Annual physical exam (Acute) Dermatitis (Acute) Vulvovaginitis (Acute) Environmental allergies (Acute) Recurrent urticaria (Acute) Hypoglycemia (Acute) Screening for diabetes mellitus (DM) (Acute) Right knee pain (Acute) MDD (major depressive disorder), recurrent episode, moderate (Acute) Dysuria (Acute) Past Medical History Medical History Borderline personality disorder Family History Family History Mother History of breast cancer Maternal Uncle Colon cancer Sister Thyroid cancer Family history of problems with anesthesia: No Surgical History Surgical History H/O knee surgery History of Problems with Anesthesia: No Social History Social History Housing: Apartment Alcohol intake: former Patient Tobacco Use Status: Current everyday Tobacco user Smoked in Last 30 Days: Yes e-Cigarette/Vaping Use: Currently Using Patient Interested in Nicotine Replacement: No Are you DNR?: No Advance Directives: No Advance Directives Information Provided: Yes Nutrition Risks: No Nutritional Risk FDLMP: three weeks ago service: No 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 Sexual orientation: Straight/Heterosexual Gender identity: Female Cognitive needs: No Hearing needs: No Vision needs: No Meds Allergies Allergy/AdvReac Type Severity Reaction Status Date / Time adhesive AdvReac Intermediate dermatitis Verified 09/20/23 09:08 Active Medications: Current Medications Lactated Ringer's (Lr) 1,000 mls @ 80 mls/hr IVCONT .[id number] Last Admin: 09/20/23 08:51 Dose: 80 mls/hr Exam Height,Weight and Vital Signs: Height 5 ft 2 in Weight 72.121 kg Last Vital Signs Temp 98.3 F 09/20/23 09:04 Pulse 70 09/20/23 09:04 Resp 18 09/20/23 09:04 BP 102/63 09/20/23 09:04 Pulse Ox 98 09/20/23 09:04 O2 Del Method Room Air 09/20/23 09:04 Pertinent Lab Results Pertinent Lab Results: Laboratory Tests 09/20/23 08:30 Urine Test NEGATIVE Airway Mallampati Class: II TM Dist: >3cm Neck ROM: Full Heart: rrr Lungs: ctaq Assessment and Plan Assessment Anesthesia Assessment: Anesthesia Plan Discussed and Smoking Cess. Discussed Final Anesthetic Review Family History of Problems with Anesthesia: No History of Problems with Anesthesia: No NPO: Yes ASA Class: III (risk of tissue swelling and necrosis around piercings that she says willnot/cannot take out discussed and she agrees to taking the risk and proceeding.) Final Preanesthetic Review: No Changes in Pt Med Stat, Meds/Allgs Chart Reviewed, Consent Obtained/Reviewed and Anes Risks/Benef Reviewed Patient Risk: Intermediate Procedure Risk: Intermediate Anesthetic Plan Anesthetic Plan: GA and Regional Block Disposition: Standard PACU
--- NOTE | 2023-09-20 09:22 | MHC.SHP ---
Pre-Procedural Eval Section A - 24 Hr Update-Section A only Date of Service: 09/20/23 The patient is an INPATIENT: No Changes since office visit: No Cold of Flu in the past 2 weeks, No New Medical Problems, No Changes in Medication and No Patient answered all questions The patient has been examined within 24 hours of the surgical procedure. The History & Physical has been completed within 30 days and I have reviewed it.: Yes Section B - Complete if H&P > 30 days Chief Complaint: Sprain of anterior cruciate ligament of left knee, Allergies: Allergies Allergy/AdvReac Type Severity Reaction Status Date / Time adhesive AdvReac Intermediate dermatitis Verified 09/20/23 09:08 Plan I have reviewed the history and physical and performed a pertinent physical examination on my patient. No changes have occurred unless specified. Time Spent With Patient Time: Total time managing care of this patient today ____ minutes.
--- NOTE | 2023-09-20 10:07 | PC.NURSE ---
left anklet removed with ring cutter with patient permission and placed in marked bag inside patient shoe in belonging bag due to surgery
--- NOTE | 2023-09-20 13:58 | PM.OP ---
Brief Operative Note Date of Service: 09/20/23 Pre-op diagnosis: Left ACL tear and bucket handle mmt Post-op diagnosis: same Procedure: Revision ACL reconstruction wtih BTB autograft and MMR Implants: wilson and nephew femoral button wityh 12x35 tibial interference screw and Footprint suture anchor x 2 Surgeon: Easton Rasmussen MD Anesthesia: GETA and regional Was an Senior Planning Manager used for this Procedure?: Yes Senior Planning Manager: Chelle Saravia Estimated blood loss (mL): 50 IV fluids (mL): 1,000 Pathology: none sent Condition: stable Disposition: PACU
[2023-09-20] MEDS: Haloperidol Lactate 5 MG/ML VIAL 1 MG IVPUSH (14:33)
--- NOTE | 2023-10-11 12:00 | P.OP_ITS ---
Operative Note Operative Note Date of Service: 09/20/23 Narrative: Date of Service: 09/20/23 Pre-op diagnosis: Left ACL tear and bucket handle mmt Post-op diagnosis: same Procedure: Revision ACL reconstruction wtih BTB autograft and MMR Implants: wilson and nephew femoral button with 12x35 tibial interference screw and Footprint suture anchor x 2 Surgeon: Easton Rasmussen MD Anesthesia: GETA and regional Was an Tree Inspector used for this Procedure?: Yes Tree Inspector: Chelle Saravia Estimated blood loss (mL): 50 IV fluids (mL): 1,000 Pathology: none sent Condition: stable Disposition: PACU Procedure in detail: Patient was brought to the operating room placed supine on the arthroscopic table and prepped and draped in standard sterile fashion. A time-out was called to identify proper site proper procedure proper surgeon and IV antibiotics per weight were administered. Under anesthesia she had a + pivot shift. I began by exsanguinating the limb and insufflating tourniquet to 300 mm Hg. Then made a standard anterolateral stab incision. The knee was insufflated with water and 30 degree arthroscope was placed. There was grade 1 fibrillations of the patella but overall suprapatellar pouch and the gutters were clean. I descended into the medial compartment where I made my far medial portal under direct visualization. There was an unstable bucket handle medial meniscus tear in the red/white zone. The root was intact and there were scattered grade 1 changes of the MFC. I then examined the notch where there was a + empty wall sign and an intact PCL. At this point I removed the equipment and turned my attention to the autograft. A midline incision was made from the middle of the patella the about 1 cvm past the tibial tubercle. Dissection was taken down to the patellar paratenon and this was incised and protected. A 1 cm allograft was taken from the central third of the patellar tendon. This was cut sharply. Proximally a 2o mm bone block was selected and distally a 25 mm. A small oscillating saw was used to make the medial and lateral oblique cuts and an osteomtome was used to connect the cuts posteriorly. I obtained an excellent graft. The patellar tendon was ten sutured together and the wound irrigated. I then prepared the allograft on the back table. I then replaced the arthroscopic camera and insufflated the knee. I first addressed the medial meniscus tear. This was a bucket handle tear. I used a rasp to debride the posterior tibial plateau and then I used 5 Fast Pass meniscal cinches (Wilson and Nephew) to repair the tear through the AM portal. I was satisfied with the extent of repair. I then turned my attention to the ACL. The ACL stump was fibrous and unattached to the femur. I debrided the stump and acl footprint and performed a limited notchplasty. I then, through a far AM portal and a 7mm behind the back guide, drilled a k-wire throug h the LFC with the knee in hyper-flexion. There was extensive allograft material that was removed and the bone was hard. I measured the tunnel as a 31 and then after sizing the allograft on the back table drilled a 25 mm tunnel with an 11 mm reamer. The final 6 mm was drilled with a 4.5 reamer. I then pulled a suture through the femoral tunnel and turned my attention to the tibia. I did examine the femoral tunnel and was satisfied with the posterior wall and its location low and medial at the anatomic footprint. I placed my tibial drill guide in 55 deg and, through a anteromedial inc just lateral to the tibial tubercle placed a k-wire into the notch exiting just medial to the anterior horn insertion of the lateral meniscus. Again there was debris from prior surgeries that was present but the tunnel lynn were solid and bony. I then over-reamed with a 1o reamer. I cleaned the tunnels up with a shaver. On the back table I stitched the graft to fit through an 11 aperture and attached the femoral button. I then passed the graft through the tibial tunnel and femoral tunnel and flipped the button. I then placed a tibial interference screw with the knee in hyper-extension while holding the graft taught. Once I was satisfied that the interference screw was buried I examined the ACL and the medial meniscus repair. The repair was stable and the ACL was not impinging and there was a negative pivot shift. To help protect the graft a Wilson and Nephew Footprint anchor was placed on both the femoral and tibial side. I then removed all instrumentation and closed the incisions with nylon. Patient was then placed in sterile dressings and a hinged knee brace. She was then extubated brought recovery room stable condition. There were no known complications.
== END 2023-09-20 15:40 | disposition home or self-care (01) ==
PROVIDERS: Anesthesiology; PCP Physician Assistant; Visit Provider Orthopaedic Surgery
PROC: (CPT 29888; principal; 2023-09-20 10:30)
DX: S83.512A Sprain of anterior cruciate ligament of left knee, initial encounter (principal); S83.212A Bucket-handle tear of medial meniscus, current injury, left knee, initial encounter; X50.1XXA Overexertion from prolonged static or awkward postures, initial encounter; Y93.89 Activity, other specified; Y92.9 Unspecified place or not applicable; Y99.9 Unspecified external cause status; M25.462 Effusion, left knee; R26.89 Other abnormalities of gait and mobility; Z87.828 Personal history of other (healed) physical injury and trauma; F60.3 Borderline personality disorder; L23.1 Allergic contact dermatitis due to adhesives; Z98.890 Other specified postprocedural states; F17.290 Nicotine dependence, other tobacco product, uncomplicated
CPT/HCPCS: 29888; 29881; 81025; C1713; J0131; J0665; J0690; J1100; J1630; J2250; J2405; J2704; J3010

== ENCOUNTER → 2023-09-20 08:16 | Outpatient (BNV) | payer OTHER, SELFPAY | PROVIDERS: PCP Physician Assistant; Visit Provider Orthopaedic Surgery | DX: S83.212A Bucket-handle tear of medial meniscus, current injury, left knee, initial encounter (principal); S83.512A Sprain of anterior cruciate ligament of left knee, initial encounter | CPT/HCPCS: 29882; 29888 ==

== ENCOUNTER 2023-09-29 13:56 | Outpatient (AMB) | payer OTHER, SELFPAY ==
--- NOTE | 2023-09-29 14:15 | MHC.OFFVIS ---
Intake Visit Reasons: PO LT knee ACL w/ auto 09/20/23 NE Intake Note: Maeve is a 27 year old female who presents today for a post op appointment s/p left knee ACL w/ auto 09/20/23 NE. Patient reports she is having a lot of swelling since surgery. She was wondering if it is possible to have it drained. Allergies adhesive Adverse Reaction (Intermediate, Verified 09/29/23 14:22) dermatitis HPI HPI PO LT knee ACL w/ auto 09/20/23 NE: Details: 27-year-old right hand dominant female who presents in the office today 9 days status post revision of a left knee ACL reconstruction with BTB autograft and MMR, which was performed on 09/20/[address] Rasmussen.? ? ? While in the office today, the patient reports ?a lot? of edema present since surgery. She states she has had this procedure done in the past and edema after is normal. However, she feels there is more after this procedure and reports edema in the left calf, ankle and foot. She confirms ambulating aid with reducing edema in the left lower extremity. She denies cramping in the calf. She confirms ecchymosis on the back of the left lower extremity. She reports a sharp pain on the lateral aspects of the left knee. ? ? The patient reports numbness in the right upper extremity and describes it as ?electricity? radiating up the extremity. ? ? 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 Sexual orientation: Straight/Heterosexual Gender identity: Female Cognitive needs: No Hearing needs: No Vision needs: No Female Reproductive History Menstrual Age of Menarche: 16 Review of Systems Const All systems reviewed & are unremarkable except as noted in HPI and below Physical Exam Const General: cooperative, healthy appearing and no acute distress Resp Effort & Inspection: normal respiratory effort and able to speak in complete sentences Cardio Rate: regular rate Peripheral pulses: Peripheral pulses 2+ throughout GI Palpation (GI): Soft to palpation Skin Lesions: no lesions Rashes: no rashes Extrem Other: Left knee moderate effusion. Incision sites are c/d/i. No signs of infection. ROM 0-70 degrees. Calf is supple and nontender. NVI. Assessment & Plan Assessment & Plan (1) Left ACL tear: Comment: Lft knee ACL reconstruction with BTB autograft and MMR 09/20/2023 NE Code(s): S83.512A - Sprain of anterior cruciate ligament of left knee, initial encounter Category: Medical Plan Ms. Tim is a 27-year-old right hand dominant female who presents in the office today 9 days status post revision of a left knee ACL reconstruction with BTB autograft and MMR, which was performed on 09/20/[address] Rasmussen.? ? ? While in the office today, the patient reports ?a lot? of edema present since surgery. She states she has had this procedure done in the past and edema after is normal. However, she feels there is more after this procedure and reports edema in the left calf, ankle and foot. She confirms ambulating aid with reducing edema in the left lower extremity. She denies cramping in the calf. She confirms ecchymosis on the back of the left lower extremity. She reports a sharp pain on the lateral aspects of the left knee. ? ? The patient reports numbness in the right upper extremity and describes it as ?electricity? radiating up the extremity. ? ? 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 ? The patient was placed in an ANURAG wrap, off the shelf, in the office today for compression. She was placed back into the ACL brace. The patient began working with physical therapy on 09/28/2023 and she will continue to complete all her sessions. Physical therapy may begin to wean her off the crutches in the next two weeks. A refill for oxycodone-acetaminophen 5-325 mg PO Q4-6H PRN for pain was sent today. Follow up will be at her normal scheduled f/u appt., sooner if needed. Orders: Orders XR knee LT 2V 09/29/23 M25.569 - Pain in unspecified knee Medications: Refilled oxycodone-acetaminophen 5-325 mg (Percocet) Partial Fill upon patient request. 1 tab PO Q4-6H PRN 42 tabs 0RF pain 7 days Patient Instructions: Scribed by Yolanda Znuiga, medical research assistant, for Dayan Mcdowell PA-C on 09/29/2023 at 3:35 pm, EST.? Coding Level of Care Code Global (99294) Diagnoses Left ACL tear S83.512A
== END 2023-09-29 15:00 | disposition home or self-care (01) ==
PROVIDERS: PCP Physician Assistant; Visit Provider Physician Assistant
DX: S83.512A Sprain of anterior cruciate ligament of left knee, initial encounter (principal)
CPT/HCPCS: 99024

== ENCOUNTER 2023-09-29 14:32 | Outpatient (REF) | payer OTHER, SELFPAY ==
--- NOTE | ~2023-09-29 | XR_ITS ---
EXAMINATION: XR KNEE, LEFT CLINICAL INFORMATION: Left knee pain. COMPARISON: 07/19/2023. TECHNIQUE: Two views of the left knee. FINDINGS: Right ankle joint effusion. Status post ACL repair with interval additional postsurgical changes involving distal femur and proximal tibia. Hardware appears intact. Alignment maintained. XR/XR knee LT 2V IMPRESSION: Right ankle joint effusion. Status post ACL repair with interval additional postsurgical changes involving distal femur and proximal tibia. Hardware appears intact. Alignment maintained.
== END 2023-09-29 14:33 | disposition home or self-care (01) ==
LOC: HO.HOSX 14:32
PROVIDERS: Visit Provider Physician Assistant
DX: M25.562 Pain in left knee (principal); S83.512D Sprain of anterior cruciate ligament of left knee, subsequent encounter; X58.XXXD Exposure to other specified factors, subsequent encounter; Z98.890 Other specified postprocedural states
CPT/HCPCS: 73560; 99212

== ENCOUNTER 2023-10-20 13:51 | Outpatient (AMB) | payer OTHER, SELFPAY ==
--- NOTE | 2023-10-20 13:59 | MHC.OFFVIS ---
Intake Visit Reasons: OV LT knee ACL w/ auto 09/20/23 NE Intake Note: Maeve is a 27 year old female who presents today for a post op appointment s/p left knee ACL w/ auto 09/20/23 NE. Patient reports she is doing well her swelling has gone down. She states that she has notices some off and on sharp pain in her knee. Patient has PT tomorrow. Allergies adhesive Adverse Reaction (Intermediate, Verified 10/20/23 14:04) dermatitis HPI HPI OV LT knee ACL w/ auto 09/20/23 NE: Details: 28-year-old right hand dominant female who presents in the office today 1 month status post revision of a left knee ACL reconstruction with BTB autograft and MMR, which was performed on 09/20/[address] Rasmussen. I last saw the patient in the office on 09/29/23 when she was placed in an ANURAG wrap and back into the ACL brace. She was scheduled to being PT on 09/28/23 and was to wean off the crutches in two weeks. A refill for oxycodone-acetaminophen 5-325 mg PO Q4-6H PRN was made.? ? While in the office today, the patient reports she is doing well, and her edema has ?gone down?. She reports some intermittent pain she describes as sharp in the left knee. She confirms having physical therapy scheduled for tomorrow, 10/21/23.? 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 Sexual orientation: Straight/Heterosexual Gender identity: Female Cognitive needs: No Hearing needs: No Vision needs: No Female Reproductive History Menstrual Age of Menarche: 16 Review of Systems Const All systems reviewed & are unremarkable except as noted in HPI and below Physical Exam Const General: cooperative, healthy appearing and no acute distress Resp Effort & Inspection: normal respiratory effort and able to speak in complete sentences Cardio Rate: regular rate Peripheral pulses: Peripheral pulses 2+ throughout GI Palpation (GI): Soft to palpation Skin Lesions: no lesions Rashes: no rashes Extrem Other: Left knee: Incision sites are clean, dry, and intact. They are well approximated and completely healed. No signs of infection. ROM is 10-90 degrees. NVI.? Assessment & Plan Assessment & Plan (1) Left ACL tear: Comment: Lft knee ACL reconstruction with BTB autograft and MMR 09/20/2023 NE Code(s): S83.512A - Sprain of anterior cruciate ligament of left knee, initial encounter Category: Medical Plan Ms. Tim is a 28-year-old right hand dominant female who presents in the office today 1 month status post revision of a left knee ACL reconstruction with BTB autograft and MMR, which was performed on 09/20/[address] Rasmussen. I last saw the patient in the office on 09/29/23 when she was placed in an ANURAG wrap and back into the ACL brace. She was scheduled to being PT on 09/28/23 and was to wean off the crutches in two weeks. A refill for oxycodone-acetaminophen 5-325 mg PO Q4-6H PRN was made.? ? While in the office today, the patient reports she is doing well, and her edema has ?gone down?. She reports some intermittent pain she describes as sharp in the left knee. She confirms having physical therapy scheduled for tomorrow, 10/21/23.? ? The patient will continue to wear the brace. She will attend her physical therapy sessions. She has only attended one evaluation session for PT and then she was out of town for work. She has her next session tomorrow. I stressed the importance of attending PT to work on ROM. Physical therapy will also aid in weaning her out of the ACL brace once quad control allows. Follow-up will be in four weeks, or sooner if needed. ? Patient Instructions: Scribed by Yolanda Zuniga medical technologist microbiology, for Dayan Mcdowell PA-C on 10/20/2023 at 2:03 pm, EST.? Coding Level of Care Code Global (35850) Diagnoses Left ACL tear S83.512A
== END 2023-10-20 14:13 | disposition home or self-care (01) ==
PROVIDERS: PCP Physician Assistant; Visit Provider Physician Assistant
DX: S83.512A Sprain of anterior cruciate ligament of left knee, initial encounter (principal)
CPT/HCPCS: 99024

== ENCOUNTER → 2023-10-20 13:51 | Outpatient (BNVA) | payer OTHER, SELFPAY | PROVIDERS: PCP Physician Assistant; Visit Provider Physician Assistant | DX: S83.512D Sprain of anterior cruciate ligament of left knee, subsequent encounter (principal); X58.XXXD Exposure to other specified factors, subsequent encounter | CPT/HCPCS: 99212 ==

== ENCOUNTER 2023-11-17 15:05 | Outpatient (AMB) | payer OTHER, SELFPAY ==
--- NOTE | 2023-11-17 15:11 | A.OFFVIS_ITS ---
Intake Visit Reasons: OV-LT knee ACL w/ auto 09/20/23 NE-F/U Intake Note: Hardik is a 28 year old female who presents today for a post operative appointment s/p Left Knee ACL Reconstruction with Autograft 09/20/23. Patient reports that she is doing well other than some occasional stiffness of the knee and some cracking and popping of the knee with flexion. Reports no pain & is wondering how long until she can discontinue the brace. Allergies adhesive Adverse Reaction (Intermediate, Verified 10/20/23 14:04) dermatitis HPI HPI OV-LT knee ACL w/ auto 09/20/23 NE-F/U: Details: Hardik is a 28 year old female who presents today for a post operative appointment s/p Left Knee ACL Reconstruction with Autograft 09/20/23. Patient reports that she is doing well other than some occasional stiffness of the knee and some cracking and popping of the knee with flexion. Reports no pain & is wondering how long until she can discontinue the brace. 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 Care should still be exhibited toward the meniscus repair and regaining strength with caution with daily activities. I discussed this with her. She is walking normally and may discontinue the knee brace. (2) H/O medial meniscus repair of left knee: Code(s): Z98.890 - Other specified postprocedural states Category: Surgical Plan: I reminded physical therapy of the meniscus repair in terms of flexion restrictions. Follow up 6 weeks Orders: Orders PT Evaluation and Treatment 11/17/23 S83.512A - Sprain of anterior cruciate ligament of left knee, initial encounter, Z98.890 - Other specified postprocedural states Coding Level of Care Code Global (19739) Diagnoses Left ACL tear S83.512A H/O medial meniscus repair of left knee Z98.890
== END 2023-11-17 15:36 | disposition home or self-care (01) ==
PROVIDERS: PCP Physician Assistant; Visit Provider Orthopaedic Surgery
DX: S83.512A Sprain of anterior cruciate ligament of left knee, initial encounter (principal); Z98.890 Other specified postprocedural states
CPT/HCPCS: 99024

== ENCOUNTER → 2023-11-17 15:05 | Outpatient (BNVA) | payer OTHER, SELFPAY | PROVIDERS: PCP Physician Assistant; Visit Provider Orthopaedic Surgery | DX: S83.512D Sprain of anterior cruciate ligament of left knee, subsequent encounter (principal); Z98.890 Other specified postprocedural states | CPT/HCPCS: 99212 ==

== ENCOUNTER 2023-11-22 14:00 | Outpatient (RCR) | payer OTHER, SELFPAY ==
--- NOTE | 2023-09-28 12:45 | MHC.PT.EP ---
[facility] [place] Office [place] Office [place] Office [address] Christie Villatoro [address] [phone] F: [phone] F: [phone] F: [phone] F: [phone] Physical Therapy Plan of Care Date of Evaluation: 09/27/23 Date of Surgery: 09/20/23 Diagnosis: s/p LEFT knee ACL autograft bone to bone and medial meniscal repair (DOS: 09/20/23) Assessment: Patient is a pleasant 27 y.o. female who is referred to PT by Chelle Saravia PA-C, surgery performed on 09/20/[address] Easton Rasmussen MD, with Dx of s/p LEFT knee ACL autograft bone to bone and medial meniscal repair following medial meniscus tear and ACL sprain. Patient impairments include swelling, pain, limited ROM and weakness consistent with post op presentation, antalgic gait. Patient current functional limitations are walking, standing, bending/squatting, working, cooking, cleaning. Patient will benefit from skilled PT to address aforementioned impairments and functional limitations to meet established goals. Frequency and Duration: The patient will be seen 1-2x/week for 8 weeks Short Term Goals: 4 weeks Patient presents with reduced swelling in LEFT knee measured circumferential mid patella 40cm. Patient is able to appropriately wean off brace once SLR is performed without lag and shows good quad control for ambulation on level surfaces. Pool Manager Goals: 8 weeks Patient presents with increased LEFT knee flexion 120 degrees to restore mobility in LEFT knee for bend/squat. Patient presents with increased LEFT knee quad strength 4/5 to be able to go up/down stairs for community use. Treatment Plan: Modalities to reduce pain, spasms and effusion. Manual therapy to restore motion and function. Therapeutic exercise to improve strength and flexibility. Neuromuscular re-education for posture and balance. Therapeutic activities to return to functional activities of daily living. Electronically signed by: Kierra Elliott, PT, DPT Please sign and return to therapist. Thank you for your referral.
--- NOTE | 2024-01-25 10:57 | MHC.PT.DC ---
[facility] [place] Office [place] Office [place] Office [address] Christie Villatoro [address] [phone] F: [phone] F: [phone] F: [phone] F: [phone] Physical Therapy Discharge Report Diagnosis: s/p LEFT knee ACL autograft bone to bone and medial meniscal repair (DOS: 09/20/23) Date of Surgery: 09/20/23 Date of Evaluation: 09/27/23 Date of Discharge: 01/25/24 Treatments to Date: 6 Cancellations to Date: 4 No Shows to Date: 1 Discharge Status: Patient Elected to Stop Discharge Summary: Maeve was last treated in PT on 11/22/23. The assessment on that date reads, Maeve shows normalized gait pattern without brace use. I continued with majority of program in weight bearing. Her quadriceps is improving in strength and endurance but still quivers with increases sets of step ups or SLR. I would prefer her to have 2-3 months of PT post surgically, but she ceased attending PT on her own accord after that session. She has FUP with ortho scheduled. She is discharged for PT at this time. Electronically signed by: Kierra Elliott, PT, DPT Please sign and return to therapist. Thank you for your referral.
== END 2024-01-25 10:58 | disposition home or self-care (01) ==
LOC: HO.PT 14:00
PROVIDERS: PCP Physician Assistant; Visit Provider Physician Assistant
DX: S83.242D Other tear of medial meniscus, current injury, left knee, subsequent encounter (principal); S83.512D Sprain of anterior cruciate ligament of left knee, subsequent encounter
CPT/HCPCS: 97014; 97110; 97112; 97140; 97161; 97530

== ENCOUNTER 2023-12-29 14:40 | Outpatient (AMB) | payer OTHER, SELFPAY ==
--- NOTE | 2023-12-29 14:43 | MHC.OFFVIS ---
Intake Visit Reasons: OV-LT knee ACL w/ auto 09/20/23 NE-F/U Intake Note: Hardik is a 28 year old female who presents today for a post operative appointment s/p Left Knee ACL Reconstruction with Autograft 09/20/23. At her last visit she was instructed to discontinue the brace and to continue with Physical therapy to work on flexion restrictions. Allergies adhesive Adverse Reaction (Intermediate, Verified 10/20/23 14:04) dermatitis HPI HPI OV-LT knee ACL w/ auto 09/20/23 NE-F/U: Details: Three months status post left knee ACL with bone patellar bone autograft. She is doing well and has finished her 1st course of physical therapy. She describes occasional popping in her knee with no locking. She has full range motion although she notes she can not hyperextend the knee she had prior to surgery. 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 Sexual orientation: Straight/Heterosexual Gender identity: Female Cognitive needs: No Hearing needs: No Vision needs: No Female Reproductive History Menstrual Age of Menarche: 16 Physical Exam Extrem Other: Incision clean dry and intact 1+ Sahra's with firm endpoint Negative pivot shift No effusion Poor quad control Atrophic quad compared to the right Assessment & Plan Assessment & Plan (1) Left ACL tear: Comment: Lft knee ACL reconstruction with BTB autograft and MMR 09/20/2023 NE Code(s): S83.512A - Sprain of anterior cruciate ligament of left knee, initial encounter Category: Medical Plan: Significant quad weakness on the left with full range of motion. I strongly recommend that she engage in daily strengthening. I reviewed specific strengthening exercises with her. She will see me back in 3 months' time. Activity modification explained and recommended in terms of walking on uneven ground, hiking, running, twisting activities. She expressed understanding. Coding Level of Care Code Global (43394) Diagnoses Left ACL tear S83.512A
== END 2023-12-29 15:06 | disposition home or self-care (01) ==
PROVIDERS: PCP Physician Assistant; Visit Provider Orthopaedic Surgery
DX: S83.512A Sprain of anterior cruciate ligament of left knee, initial encounter (principal)
CPT/HCPCS: 99212

== ENCOUNTER → 2023-12-29 14:40 | Outpatient (BNVA) | payer OTHER, SELFPAY | PROVIDERS: PCP Physician Assistant; Visit Provider Orthopaedic Surgery | DX: S83.512D Sprain of anterior cruciate ligament of left knee, subsequent encounter (principal); X58.XXXD Exposure to other specified factors, subsequent encounter | CPT/HCPCS: 99212 ==